=== PATIENT | male | born 1940 | race Caucasian/White ===

== ENCOUNTER 2018-10-16 01:58 | Inpatient (IN) | payer MEDICARE, OTHER ==
[~2018-10-16] VITALS: Ht 177.8 cm; Wt 95.7 kg
[2018-10-16] MEDS ORDERED: ACETAMINOPHEN 650 MG/SUPP.RECT RC ONE ×2 (02:05→02:30)
[2018-10-16] MEDS ORDERED: LIDOCAINE 2% JEL UROJET 10 ML MM ONE (02:09)
--- NOTE | 2018-10-16 02:10 | NUR ---
TO BED 2 BIB PARAMEDICS C/O FEVER SINCE EARLIER TONIGHT. PT AAOX1 NO ACUTE DISTRESS NOTED, RESP EVEN AND UNLABORED. PT HOT TO TOUCH, DIAPHORETIC. PLACE PT ON CARDIAC MONITORING, CONTINUOUS POX, O2@2L/NC. ER MD AT BEDSIDE TO EVAL PT WITH ORDERS RECEIVED. PT AT BEDSIDE. STARTED SL 18G TO L WRIST, BLOOD DRAWN AND SENT TO LAB.
[2018-10-16] MEDS ORDERED: ONDANSETRON HCL/PF 4 MG/2 ML VIAL ONE (02:19)
[2018-10-16 02:25] LABS: BASOPHILS % (AUTO) 0.2 % (0.0-2.0); EOSINOPHILS % (AUTO) 0.2 % (0.0-6.0); HEMATOCRIT 55 % (39-51); HEMOGLOBIN 18.8 g/dL (13.5-17.5); LYMPHOCYTES # (AUTO) 0.5 /CMM (0.8-4.8); LYMPHOCYTES % (AUTO) 6.8 % (20.0-44.0); MEAN CORPUSCULAR HGB CONC 34 g/dl (31.0-36.0); MEAN CORPUSCULAR VOLUME 100 fL (80-96); MONOCYTES # (AUTO) 0.4 /CMM (0.1-1.30); MONOCYTES % (AUTO) 4.8 % (2.0-12.0); NEUTROPHILS # (AUTO) 6.7 /CMM (1.8-8.9); PLATELET COUNT (AUTO) 105 /CMM (150-450); RED BLOOD CELL COUNT(AUTO) 5.49 MIL/uL (4.5-6.0); WHITE BLOOD COUNT (AUTO) 7.6 K/uL (4.3-11.0)
[2018-10-16] MEDS ORDERED: ONDANSETRON HCL/PF 4 MG/2 ML VIAL IVP ONE (02:30)
[2018-10-16] MEDS ORDERED: IV NS 0.9% 1,000 ML BAG IV ONE ×2 (02:30→03:00)
[2018-10-16 02:31] LABS: CALCIUM, SERUM 9.3 mg/dL (8.5-10.1); CARBON DIOXIDE 23 mmol/L (21-32); CHLORIDE 104 mmol/L (98-107); GLUCOSE 142 mg/dL (74-106); POTASSIUM 4.2 mmol/L (3.5-5.1); SODIUM SERUM 139 mmol/L (136-145); UREA NITROGEN, BLOOD 29 mg/dL (7-18)
[2018-10-16 02:33] LABS: APPEARANCE,URINE Cloudy (CLEAR); BILIRUBIN,URINE Negative (NEGATIVE); BLOOD, URINE Moderate Ery/uL (NEGATIVE); COLOR,URINE Yellow (YELLOW); KETONES,URINE Negative (NEGATIVE); LEUKOCYTE ESTERASE ,URINE Small (NEGATIVE); NITRITE, URINE Negative (NEGATIVE); PROTEIN,URINE 100 mg/dl (NEGATIVE); UGLUCOSE Negative (NEGATIVE); UROBILINOGEN,URINE 0.2 EU/dL (0.2)
--- NOTE | 2018-10-16 02:42 | NUR ---
PT BROUGHT BY RADIOLOGY TO CT
[2018-10-16 02:45] LABS: ALANINE AMINOTRANSFERASE 42 U/L (12-78); ALBUMIN 3.6 g/dL (3.4-5.0); ALKALINE PHOSPHATASE 108 U/L (46-116); ASPARTATE AMINOTRANSFERASE 35 U/L (15-37); B-TYPE NATRIURETIC PEPTIDE 823 PG/ML (0-125); BILIRUBIN,DIRECT 0.2 mg/dL (0.0-0.2); BILIRUBIN,TOTAL 0.8 mg/dL (0.2-1.0); TOTAL PROTEIN, SERUM 6.9 g/dL (6.4-8.2)
[2018-10-16 02:50] LABS: BACTERIA,URINE None seen /HPF (None Seen); SQUAMOUS EPITHELIAL CELL,UR Few /HPF (None Seen)
--- NOTE | 2018-10-16 02:57 | NUR ---
PT BACK FROM RADIOLOGY. PENDING CT RESULTS.
[2018-10-16] MEDS ORDERED: IV NS 0.9% 250 ML IV ONE (04:35)
[2018-10-16] MEDS ORDERED: IOHEXOL-350 100 ML VIAL IV ONE (04:35)
[2018-10-16] MEDS ORDERED: CT SWABBABLE VALVE TRANS SET 1 EA INFUS.SET MC ONE (04:35)
--- NOTE | 2018-10-16 04:43 | NUR ---
PT TRANSPORTED TO RADIOLOGY FOR CT HEAD WITH CONTRAST.
--- NOTE | 2018-10-16 04:53 | NUR ---
PT BACK FROM RADIOLOGY. PENDING CT RESUTL.
[2018-10-16] MEDS ORDERED: CEFTRIAXONE 1GM BAG (ER ONLY) 1 GM/50 ML PIGGYBACK IV ONE (05:30)
[2018-10-16] MEDS ORDERED: AZITHROMYCIN 500 MG in IV D5W 250 ML IV ONE (05:30)
[2018-10-16] MEDS ORDERED: CEFTRIAXONE 1GM BAG (ER ONLY) 50 ML IV ONE (05:41)
[2018-10-16] MEDS ORDERED: AZITHROMYCIN 500 MG VIAL ONE (05:42)
--- NOTE | 2018-10-16 06:08 | NUR ---
REPORT CALLED TO [facility]. PENDING HOSPITAL ADMISSION.
[2018-10-16 06:45] VITALS: BP 103/59
--- NOTE | 2018-10-16 06:48 | NUR ---
RECEIVE PT VIA DENNY FROM E.R AT 0648 PATIENT STABLE A/O X 4, ADMIT TO TELE VS STABLE. KEPT CLEAN AND DRY AND COMFORTABLE. SAFETY MEASURES IN PLACE. ENDORSE NEXT ADMITTING RN
[2018-10-16] MEDS ORDERED: ONDANSETRON HCL/PF 4 MG/2 ML VIAL IVP PRN (07:00)
[2018-10-16] MEDS ORDERED: IV D5/ 0.9% NACL 1,000 ML IV PRN (07:00)
[2018-10-16] MEDS ORDERED: ALBUTEROL FS 2.5 MG/3 ML VIAL.NEB NEB PRN (07:00)
[2018-10-16] MEDS ORDERED: ACETAMINOPHEN 650 MG/SUPP.RECT RC PRN (07:00)
[2018-10-16] MEDS ORDERED: Z GUARD REMEDY 2 OZ OINT TP PRN (07:00)
[2018-10-16] MEDS ORDERED: MORPHINE SULFATE INJ 2 MG/ML DISP.SYRIN IV PRN (07:00)
--- NOTE | 2018-10-16 07:13 | NUR ---
VS BP BP 101/54 P 77 R 18 T 98.2 02 SAT 93% R.A
--- NOTE | 2018-10-16 07:30 | NUR ---
tele cereal maker: admission admitted this 78 years old male pt from e.. with dx: pneumonia and sepsis. and friend at bedside. answering all questions due to pt has hx: dementia. pt is awake, a/ox3-4. oriented to room and surroundings. noted with 2 h/l (right and left wrist). tele sr=[id number]. no c/o pain or any discomfort. afebrile. in no apparent distress noted. will continue to monitor.
[2018-10-16] MEDS ORDERED: METO25TA3 PO (07:49)
[2018-10-16] MEDS ORDERED: AMLO5TAB9 PO (07:49)
[2018-10-16] MEDS ORDERED: VITA1TAB56 PO (07:49)
[2018-10-16] MEDS ORDERED: LORA1TAB PO (07:49)
[2018-10-16] MEDS ORDERED: APIX5TAB PO (07:49)
[2018-10-16] MEDS ORDERED: MODA100T14 PO (07:49)
[2018-10-16] MEDS ORDERED: IMIP10TA5 PO (07:49)
[2018-10-16] MEDS ORDERED: MEMA10TA PO (07:49)
[2018-10-16] MEDS ORDERED: ATOR10TA PO (07:49)
[2018-10-16] MEDS ORDERED: LEVO50TA PO (07:49)
[2018-10-16] MEDS ORDERED: ZOLP12.52 PO (07:49)
[2018-10-16] MEDS ORDERED: BUPR-51 PO (07:49)
[2018-10-16] MEDS ORDERED: FERR-56 PO (07:49)
[2018-10-16] MEDS ORDERED: LISI10TA5 PO (07:49)
[2018-10-16 08:00] VITALS: BP 103/59
[2018-10-16 08:20] LABS: BASOPHILS % (AUTO) 0.1 % (0.0-2.0); HEMATOCRIT 49 % (39-51); HEMOGLOBIN 16.4 g/dL (13.5-17.5); LYMPHOCYTES # (AUTO) 0.5 /CMM (0.8-4.8); LYMPHOCYTES % (AUTO) 3.7 % (20.0-44.0); MEAN CORPUSCULAR HGB CONC 33 g/dl (31.0-36.0); MEAN CORPUSCULAR VOLUME 102 fL (80-96); MONOCYTES # (AUTO) 1.8 /CMM (0.1-1.30); MONOCYTES % (AUTO) 14.4 % (2.0-12.0); NEUTROPHILS # (AUTO) 10.4 /CMM (1.8-8.9); NEUTROPHILS % (AUTO) 81.8 % (43.0-81.0); PLATELET COUNT (AUTO) 98 /CMM (150-450); RED BLOOD CELL COUNT(AUTO) 4.84 MIL/uL (4.5-6.0); WHITE BLOOD COUNT (AUTO) 12.7 K/uL (4.3-11.0)
--- NOTE | 2018-10-16 08:30 | NUR ---
tele formal wear rental clerk: md visit seen and examined by mildred baker (acnp) at this time. informed md re: advance directive (no heroic measures per ); to bring copy today. given phone number to elder assistant to call pt's primary care at [facility]. pt appears to be forgetful. reality orientation provided prn. instructed to call for assistance. tele sr.=[id number]'s. call light within reach. will monitor.
[2018-10-16] MEDS: FAMOTIDINE/PF INJ 20 MG/2 ML VIAL IV SCH ×2 (08:37→21:25)
[2018-10-16 08:46] LABS: CALCIUM, SERUM 8.7 mg/dL (8.5-10.1); CARBON DIOXIDE 24 mmol/L (21-32); CHLORIDE 105 mmol/L (98-107); GLUCOSE 194 mg/dL (74-106); POTASSIUM 4.1 mmol/L (3.5-5.1); SODIUM SERUM 138 mmol/L (136-145); UREA NITROGEN, BLOOD 27 mg/dL (7-18)
[2018-10-16 08:52] LABS: ALANINE AMINOTRANSFERASE 34 U/L (12-78); ALBUMIN 2.9 g/dL (3.4-5.0); ALKALINE PHOSPHATASE 80 U/L (46-116); ASPARTATE AMINOTRANSFERASE 33 U/L (15-37); BILIRUBIN,TOTAL 0.5 mg/dL (0.2-1.0); MAGNESIUM 1.7 mg/dL (1.8-2.4); PHOSPHORUS 2.9 mg/dL (2.5-4.9); TOTAL PROTEIN, SERUM 5.5 g/dL (6.4-8.2)
[2018-10-16 08:59] LABS: CHOLESTEROL 96 mg/dL (<200); HDL CHOLESTEROL 42 mg/dL (40-60); LDL 48 mg/dL (0-99); THYROID STIMULATING HORMONE 0.451 uIU/mL (0.358-3.74); TRIGLYCERIDES 61 mg/dL (30-150)
[2018-10-16] MEDS ORDERED: FERROUS SULFATE (325 MG) 325 MG/TAB TABLET PO SCH (09:00)
[2018-10-16] MEDS ORDERED: IMIPRAMINE 25 MG TABLET PO SCH (09:00)
[2018-10-16] MEDS ORDERED: APIXABAN 5 MG TABLET PO ONE (09:30)
[2018-10-16] MEDS ORDERED: IMIPRAMINE 10 MG TABLET PO SCH (09:30)
--- NOTE | 2018-10-16 09:30 | NUR ---
m/s front end driver: cardio consult seen and examined by dr. corral with new orders. orders acknowledged.
[2018-10-16] MEDS: FUROSEMIDE 40 MG/4 ML VIAL IV SCH ×2 (09:49→13:58)
[2018-10-16] MEDS: LISINOPRIL (10MG) 10 MG TABLET PO SCH (10:00)
[2018-10-16] MEDS: AMLODIPINE BESYLATE 5 MG TABLET PO SCH (10:00)
[2018-10-16] MEDS: METOPROLOL SUCCINATE 25 MG TAB.SR.24H PO SCH (10:00)
[2018-10-16] MEDS: VITAMIN B COMP W-C 1 TAB TABLET PO SCH (11:15)
[2018-10-16] MEDS: BUPROPION XL 150 MG TAB.ER.24 PO SCH (11:15)
[2018-10-16] MEDS: MEMANTINE HCL 5 MG TABLET PO SCH ×2 (11:15→17:32)
[2018-10-16] MEDS: ATORVASTATIN 10 MG TABLET PO SCH (11:15)
[2018-10-16] MEDS: MODAFINIL 100 MG TABLET PO SCH ×2 (11:17→18:21)
[2018-10-16] MEDS: LEVOTHYROXINE SODIUM 50 MCG TABLET PO SCH (11:17)
[2018-10-16] MEDS ORDERED: Magnesium 1GM/D5W 100ML PREMIX 100 ML IV SCH (12:00)
--- NOTE | 2018-10-16 12:00 | NUR ---
m/s civil preparedness training officer: notes pt resting comfortable in bed. lunch served, but pt doesn't want to eat at this time. instructed to call for assistance. will continue to monitor.
[2018-10-16 12:53] LABS: BAND % (MANUAL) 3 % (0.0-5.0); LYMPHOCYTES % (MANUAL) 2 % (16-48); MONOCYTES % (MANUAL) 12 % (0-11.0); NEUTROPHILS % (MANUAL) 83 (42-76)
--- NOTE | 2018-10-16 13:30 | NUR ---
m/s compensation specialist: notes pt refused breakfast and lunch when offered, stated, "i will eat in the middle of afternoon." instructed to call for assistance. will continue to monitor.
--- NOTE | 2018-10-16 15:30 | NUR ---
m/s uniform cap operator: notes here and brought some clothes and a couple of books. updated belongings lists. pt feeling much better. no distress noted. will continue to monitor.
[2018-10-16 16:00] VITALS: BP 106/55
--- NOTE | 2018-10-16 16:30 | NUR ---
Patient resides locally with spouse in a single level dwelling. He is ambulatory and independent with adl's. Denies having DME or homehealth. Pcp is Dr. Selvin Garcia. Current dc plan is to return home. Addendum: 10/16/18 at 1631 by PADMINI CROWE RN Amended: Links added.
--- NOTE | 2018-10-16 17:30 | NUR ---
m/s machine design engineer: notes dinner served. hob elevated. remains at bedside. will continue to monitor.
[2018-10-16] MEDS: APIXABAN 5 MG TABLET PO SCH (17:32)
--- NOTE | 2018-10-16 18:10 | NUR ---
m/s clinical material handler: notes left. pt resting comfortable in bed. remains afebrile. needs attended. instructed to call for assistance. will continue to monitor.
--- NOTE | 2018-10-16 19:15 | NUR ---
m/s business systems developer: notes report given to ivonne (vicki) for continuity of care.
--- NOTE | 2018-10-16 19:30 | NUR ---
MSRN FULLY AWAKE, SITTING ON THE SIDE OF HIS BED. NO DISCOMFORTS MADE. SAFETY PRECAUTIONS EMPHASIZED, WELL UNDERSTOOD. REMINDED TO CALL STAFF FOR ANY ASSISTANCE OR DISCOMFORTS, CALL LIGHT WITHIN REACH. NO FURTHER NEEDS MADE. CLOSELY WATCHED.
[2018-10-16 20:00] VITALS: BP 108/58
--- NOTE | 2018-10-16 21:45 | NUR ---
msrn due meds administered. no further needs made
[2018-10-16] MEDS: ZOLPIDEM TARTRATE 5 MG TABLET PO PRN (23:25)
--- NOTE | 2018-10-16 23:30 | NUR ---
CHAVA RECEIVED CALL FROM [place], PATIENT BLOOD CULTURE HAS GRAM NEGATIVE RODS. PER [employer] WILL FAXED FINAL REPORT OF BLOOD CULTURE IN AM.
--- NOTE | 2018-10-17 00:41 | NUR ---
MSRN AMBULATING AROUND ROOM, MAKING SELF BUSY FIXING HIS PERSONAL BELONGINGS, READING BOOKS. REQUESTED AMBIEN EARLIER STILL AWAKE OF THIS TIME. SAFETY PRECAUTIONS EMPHASIZED, WELL UNDERSTOOD.
--- NOTE | 2018-10-17 05:30 | NUR ---
MSRN ANTIBIOTICS INFUSING WELL, EASILY AROUSABLE. REORIENTED AT TIMES, PLEASANTLY CONFUSED.
[2018-10-17] MEDS: CEFTRIAXONE 1 G in IV D5W 50 ML IV SCH (06:04)
[2018-10-17 06:37] LABS: BASOPHILS % (AUTO) 0.4 % (0.0-2.0); EOSINOPHILS % (AUTO) 0.9 % (0.0-6.0); HEMATOCRIT 50 % (39-51); HEMOGLOBIN 17.2 g/dL (13.5-17.5); LYMPHOCYTES # (AUTO) 0.5 /CMM (0.8-4.8); LYMPHOCYTES % (AUTO) 6.2 % (20.0-44.0); MEAN CORPUSCULAR HGB CONC 34 g/dl (31.0-36.0); MEAN CORPUSCULAR VOLUME 101 fL (80-96); MONOCYTES # (AUTO) 1.7 /CMM (0.1-1.30); MONOCYTES % (AUTO) 19.7 % (2.0-12.0); NEUTROPHILS # (AUTO) 6.2 /CMM (1.8-8.9); NEUTROPHILS % (AUTO) 72.8 % (43.0-81.0); PLATELET COUNT (AUTO) 100 /CMM (150-450); RED BLOOD CELL COUNT(AUTO) 4.99 MIL/uL (4.5-6.0); WHITE BLOOD COUNT (AUTO) 8.5 K/uL (4.3-11.0)
[2018-10-17] MEDS: AZITHROMYCIN 500 MG in IV D5W 250 ML IV SCH (06:38)
[2018-10-17 07:01] LABS: ALANINE AMINOTRANSFERASE 42 U/L (12-78); ALKALINE PHOSPHATASE 85 U/L (46-116); ASPARTATE AMINOTRANSFERASE 31 U/L (15-37); BILIRUBIN,TOTAL 0.5 mg/dL (0.2-1.0); CALCIUM, SERUM 9.1 mg/dL (8.5-10.1); CARBON DIOXIDE 26 mmol/L (21-32); CHLORIDE 105 mmol/L (98-107); CREATININE 2.2 mg/dL (0.6-1.3); GLUCOSE 115 mg/dL (74-106); PHOSPHORUS 2.9 mg/dL (2.5-4.9); POTASSIUM 4.1 mmol/L (3.5-5.1); SODIUM SERUM 140 mmol/L (136-145); TOTAL PROTEIN, SERUM 6.1 g/dL (6.4-8.2); UREA NITROGEN, BLOOD 33 mg/dL (7-18)
--- NOTE | 2018-10-17 07:06 | NUR ---
MSRN REMAINS UNCHANGE, REMAINS AFEBRILE. NO MICRO REPORTS RECEIVE FROM [facility]. WILL ENDORSE TO INCOMING RN
[2018-10-17 08:00] VITALS: BP 106/48
[2018-10-17 08:46] LABS: LYMPHOCYTES % (MANUAL) 4 % (16-48); MONOCYTES % (MANUAL) 17 % (0-11.0); NEUTROPHILS % (MANUAL) 79 (42-76)
[2018-10-17] MEDS: LISINOPRIL (10MG) 10 MG TABLET PO SCH (09:00)
[2018-10-17] MEDS: AMLODIPINE BESYLATE 5 MG TABLET PO SCH (09:00)
[2018-10-17] MEDS: METOPROLOL SUCCINATE 25 MG TAB.SR.24H PO SCH (09:00)
[2018-10-17] MEDS: BUPROPION XL 150 MG TAB.ER.24 PO SCH (09:36)
[2018-10-17] MEDS: ATORVASTATIN 10 MG TABLET PO SCH (09:36)
[2018-10-17] MEDS: LEVOTHYROXINE SODIUM 50 MCG TABLET PO SCH (09:36)
[2018-10-17] MEDS: MEMANTINE HCL 5 MG TABLET PO SCH ×2 (09:37→19:28)
[2018-10-17] MEDS: IMIPRAMINE 25 MG TABLET PO SCH ×2 (09:38→19:27)
[2018-10-17] MEDS: VITAMIN B COMP W-C 1 TAB TABLET PO SCH (09:39)
[2018-10-17] MEDS: APIXABAN 5 MG TABLET PO SCH ×2 (09:47→19:29)
[2018-10-17] MEDS: PANTOPRAZOLE 40 MG TABLET.DR PO SCH (09:56)
[2018-10-17] MEDS: MODAFINIL 100 MG TABLET PO SCH ×2 (10:04→19:28)
--- NOTE | 2018-10-17 10:30 | NUR ---
report to dr. pierce pt. with gram negative rods in blood and urine.
--- NOTE | 2018-10-17 11:00 | NUR ---
in to visit.
[2018-10-17] MEDS ORDERED: hydrALAZINE HCL 25 MG TABLET PO PRN (11:30)
[2018-10-17 12:00] VITALS: BP 124/64
[2018-10-17 16:00] VITALS: BP 115/61
--- NOTE | 2018-10-17 18:00 | NUR ---
pt. sleeping all day, back in to visit.
--- NOTE | 2018-10-17 19:10 | NUR ---
MS RN NOTES RECEIVED PT IN BED AWAKE AND ABLE TO MAKE NEEDS KNOWN WITH FAMILY AT BEDSIDE. PT A/O X2-3 WITH PERIODS OF CONFUSION. RESPIRATIONS EVEN AND UNLABORED WITH NO S/S OF ACUTE DISTRESS OR SOB NOTED. NO COMPLAINTS OF PAIN AT THIS TIME. SAFETY MEASURES IN PLACE WITH BED IN LOWEST LOCKED POSITION WITH SIDE RAILS UP X2. CALL LIGHT WITHIN REACH. WILL CONTINUE TO MONITOR.
[2018-10-17 20:00] VITALS: BP 121/74
[2018-10-17] MEDS: ZOLPIDEM TARTRATE 5 MG TABLET PO PRN (21:50)
[2018-10-18] MEDS: CEFTRIAXONE 1 G in IV D5W 50 ML IV SCH (04:56)
[2018-10-18] MEDS: AZITHROMYCIN 500 MG in IV D5W 250 ML IV SCH (05:57)
--- NOTE | 2018-10-18 06:44 | NUR ---
MS RN NOTES PT IN BED SLEEPING BUT EASILY AWOKEN VERBALLY OR BY TOUCH. PT A/O X2-3 WITH PERIODS OF CONFUSION AND ABLE TO MAKE NEEDS KNOWN. RESPIRATIONS EVEN AND UNLABORED WITH NO S/S OF ACUTE DISTRESS OR SOB NOTED THROUGHOUT SHIFT. NO COMPLAINTS OF PAIN AT THIS TIME. SAFETY MEASURES IN PLACE WITH BED IN LOWEST LOCKED POSITION WITH SIDE RAILS UP X2. CALL LIGHT WITHIN REACH. WILL ENDORSE TO ONCOMING NURSE FOR VERONICA.
[2018-10-18 07:27] LABS: BASOPHILS % (AUTO) 0.2 % (0.0-2.0); EOSINOPHILS % (AUTO) 0.2 % (0.0-6.0); HEMATOCRIT 48 % (39-51); HEMOGLOBIN 16.4 g/dL (13.5-17.5); LYMPHOCYTES # (AUTO) 0.7 /CMM (0.8-4.8); LYMPHOCYTES % (AUTO) 9.4 % (20.0-44.0); MEAN CORPUSCULAR HGB CONC 34 g/dl (31.0-36.0); MEAN CORPUSCULAR VOLUME 101 fL (80-96); MONOCYTES # (AUTO) 1.6 /CMM (0.1-1.30); MONOCYTES % (AUTO) 21.7 % (2.0-12.0); NEUTROPHILS # (AUTO) 4.9 /CMM (1.8-8.9); NEUTROPHILS % (AUTO) 68.5 % (43.0-81.0); PLATELET COUNT (AUTO) 106 /CMM (150-450); RED BLOOD CELL COUNT(AUTO) 4.77 MIL/uL (4.5-6.0); WHITE BLOOD COUNT (AUTO) 7.2 K/uL (4.3-11.0)
--- NOTE | 2018-10-18 07:40 | NUR ---
MS RN OPENING NOTES RECEIVED PT LAYING IN BED WITH HOB SLIGHTLY ELEVATED, RESTING COMFORTABLY. PT IS EASILY AROUSABLE, A/O X2-3. RESPIRATIONS ARE EVEN AND UNLABORED, NOT IN ANY ACUTE DISTRESS NOTED. PT DENIES ANY PAIN AT THIS TIME, NO C/O SOB, N/V. BILATERAL WRISTS NOTED WITH IV, INTACT, NO INFILTRATION NOTED. DRESSING KEPT CLEAN AND DRY. SAFETY MEASURES ARE IN PLACE. INSTRUCTED PT TO USE CALL LIGHT WHEN ASSISTANCE IS NEEDED, CALL LIGHT IS LEFT WITHIN REACH. WILL MONITOR THROUGHOUT SHIFT FOR CONTINUITY OF CARE.
[2018-10-18 07:43] LABS: CARBON DIOXIDE 26 mmol/L (21-32); CHLORIDE 105 mmol/L (98-107); GLUCOSE 157 mg/dL (74-106); MAGNESIUM 1.8 mg/dL (1.8-2.4); PHOSPHORUS 2.9 mg/dL (2.5-4.9); POTASSIUM 4.7 mmol/L (3.5-5.1); SODIUM SERUM 139 mmol/L (136-145); UREA NITROGEN, BLOOD 26 mg/dL (7-18)
[2018-10-18 08:00] VITALS: BP_SYST 101; BP_DIAS 53; BP_DIAS 55
[2018-10-18 08:17] LABS: BAND % (MANUAL) 23 % (0.0-5.0); LYMPHOCYTES % (MANUAL) 11 % (16-48); MONOCYTES % (MANUAL) 19 % (0-11.0); NEUTROPHILS % (MANUAL) 47 (42-76)
[2018-10-18] MEDS: METOPROLOL SUCCINATE 25 MG TAB.SR.24H PO SCH (08:17)
[2018-10-18] MEDS: VITAMIN B COMP W-C 1 TAB TABLET PO SCH (08:17)
[2018-10-18] MEDS: ATORVASTATIN 10 MG TABLET PO SCH (08:17)
[2018-10-18] MEDS: BUPROPION XL 150 MG TAB.ER.24 PO SCH (08:17)
[2018-10-18] MEDS: AMLODIPINE BESYLATE 5 MG TABLET PO SCH (08:17)
[2018-10-18] MEDS: MEMANTINE HCL 5 MG TABLET PO SCH ×2 (08:17→17:24)
[2018-10-18] MEDS: LEVOTHYROXINE SODIUM 50 MCG TABLET PO SCH (08:17)
[2018-10-18] MEDS: MODAFINIL 100 MG TABLET PO SCH ×2 (08:17→17:24)
[2018-10-18] MEDS: PANTOPRAZOLE 40 MG TABLET.DR PO SCH (08:17)
[2018-10-18] MEDS: APIXABAN 5 MG TABLET PO SCH ×2 (08:19→17:24)
[2018-10-18] MEDS: IMIPRAMINE 25 MG TABLET PO SCH ×2 (08:20→17:24)
--- NOTE | 2018-10-18 11:40 | NUR ---
MS RN NOTES-- CALLED DR. KWON TO NOTIFY RE: URINE CX RESULTS, RESISTIVE TO ROCEPHINE. WAITING A CALL BACK.
--- NOTE | 2018-10-18 12:34 | NUR ---
MS RN NOTES-- PT ABLE TO MAKE NEEDS KNOWN. NEEDS MET AND RENDERED. PT DOES NOT APPEAR TO BE IN ANY ACUTE DISTRESS. WILL CONTINUE TO MONITOR.
[2018-10-18 16:00] VITALS: BP 126/70
[2018-10-18] MEDS ORDERED: MEROPENEM 500 MG in IV NS 0.9% 50 ML IV SCH (17:30)
--- NOTE | 2018-10-18 17:30 | NUR ---
MS RN NOTES-- NEW ORDERS FOR MEREM, CARRIED OUT BY SWATI REILLY.
--- NOTE | 2018-10-18 18:36 | NUR ---
MS RN CLOSING NOTES ALL DUE MEDS GIVEN, NEEDS MET AND RENDERED. PT REMAINS A/O 3-4, HOWEVER W/ PERIODS OF FORGETFULNESS. RESPIRATIONS ARE EVEN AND UNLABORED, NOT IN ANY ACUTE DISTRESS NOTED. PT DENIES ANY PAIN AT THIS TIME, NO C/O SOB, N/V. IV SITE TO LEFT WRIST INTACT, NO INFILTRATION NOTED. DRESSING KEPT CLEAN AND DRY. REMINDED PT TO USE CALL LIGHT WHEN ASSISTANCE IS NEEDED, CALL LIGHT IS LEFT WITHIN REACH. WILL ENDORSE TO NEXT SHIFT FOR CONTINUITY OF CARE.
[2018-10-18] MEDS: MEROPENEM 1 G in IV NS 0.9% 100 ML IV SCH (19:17)
--- NOTE | 2018-10-18 19:40 | NUR ---
MS/RN OPENING NOTES PT RECEIVED AWAKE, SITTING AT THE EDGE OF THE BED WITH AT BEDSIDE. A/OX3. ON ROOM AIR, BREATHING EVEN AND UNLABORED. DENIES SOB AND PAIN AT THIS TIME. IN NO ACUTE DISTRESS. IV TO LEFT WRIST CURRENTLY INFUSING ABX. NO NEEDS EXPRESSED AT THIS TIME. BED IN LOW/LOCKED POSITION WITH CALL LIGHT IN REACH. BILAT. UPPER SIDE RAILS IN PLACE. ONLY REQUEST FOR AMBIEN AT 2200. WILL CONTINUE TO MONITOR
[2018-10-18 20:00] VITALS: BP 122/71
[2018-10-18] MEDS: ZOLPIDEM TARTRATE 5 MG TABLET PO PRN (22:10)
--- NOTE | 2018-10-19 04:00 | NUR ---
MS/RN NOTES PT AWAKE, SITTING UP IN BED READING A BOOK. NO NEEDS EXPRESSED AT THIS TIME.
[2018-10-19] MEDS: MEROPENEM 1 G in IV NS 0.9% 100 ML IV SCH ×2 (06:18→18:42)
--- NOTE | 2018-10-19 07:15 | NUR ---
MS/RN CLOSING NOTES PT AWAKE, SITTING IN THE CHAIR. A/O3. ON ROOM AIR, BREATHING EVEN AND UNLABORED. IN NO ACUTE DISTRESS. DENIES SOB AND PAIN AT THIS TIME. IV TO LEFT WRIST PATENT AND INTACT WITH IV ABX ONGOING. NO SIGNIFICANT CHANGES OVERNIGHT. ALL NEEDS MET AND ANTICIPATED. BED REMAINS IN LOW/LCOKED POSITION WITH CALL LIGHT IN REACH. SEMI FOWLERS. BILAT. UPPER SIDE RAILS IN PLACE. WILL ENDORSE TO DAY SHIFT RN VERONICA.
--- NOTE | 2018-10-19 07:16 | NUR ---
RN OPENING NOTES RECEIVED PATIENT SITTING ON A CHAIR. A/OX4, ABLE TO MAKE NEEDS KNOWN. NOT IN ANY FORM OF DISTRESS, NO SOB, DENIED PAIN OR DISCOMFORT AT THIS TIME. IV ACCESS INTACT AND PATENT. KEPT PATIENT SAFE AND COMFORTABLE. BED IN LOW/LOCKED POSITION. BILATERAL SIDERAILS UP,CALL LIGHTS IN REACH. WILL CONTINUE TO MONITOR ACCORDINGLY
[2018-10-19] MEDS: VITAMIN B COMP W-C 1 TAB TABLET PO SCH (08:14)
[2018-10-19] MEDS: MEMANTINE HCL 5 MG TABLET PO SCH ×2 (08:15→17:03)
[2018-10-19] MEDS: LEVOTHYROXINE SODIUM 50 MCG TABLET PO SCH (08:17)
[2018-10-19] MEDS: ATORVASTATIN 10 MG TABLET PO SCH (08:17)
[2018-10-19] MEDS: AMLODIPINE BESYLATE 5 MG TABLET PO SCH (08:18)
[2018-10-19] MEDS: BUPROPION XL 150 MG TAB.ER.24 PO SCH (08:21)
[2018-10-19] MEDS: PANTOPRAZOLE 40 MG TABLET.DR PO SCH (08:21)
[2018-10-19] MEDS: METOPROLOL SUCCINATE 25 MG TAB.SR.24H PO SCH (08:21)
[2018-10-19] MEDS: MODAFINIL 100 MG TABLET PO SCH ×2 (08:21→17:03)
[2018-10-19] MEDS: APIXABAN 5 MG TABLET PO SCH ×2 (08:26→17:01)
[2018-10-19] MEDS: IMIPRAMINE 25 MG TABLET PO SCH ×2 (08:26→17:02)
[2018-10-19 08:59] VITALS: BP 141/88
[2018-10-19] MEDS ORDERED: REGADENOSON 0.4 MG/5 ML DISP.SYRIN IVP ONE (09:00)
[2018-10-19 15:15] VITALS: BP_SYST 112; BP_SYST 152; BP_DIAS 43; BP_DIAS 63
--- NOTE | 2018-10-19 19:24 | NUR ---
MS/RN OPENING NOTES PT RECEIVED AWAKE, HIGH FOWLERS IN BED WITH AT BEDSIDE. A/OX3. ON ROOM AIR, BREATHING EVEN AND UNLABORED. NO C/O SOB OR PAIN AT THIS TIME. IN NO ACUTE DISTRESS. JASPER MIDLINE PATENT AND INTACT CURRENTLY INFUSING IV MERREM AT THIS TIME. NO NEEDS EXPRESSED AT THIS TIME. ISOLATION PRECAUTIONS IMPLEMENTED. BED IN LOW/LOCKED POSITION WITH CALL LIGHT IN REACH. BILAT. UPPER SIDE RAILS IN PLACE. WILL CONTINUE TO MONITOR
[2018-10-19 20:00] VITALS: BP 133/69
[2018-10-20] MEDS: ZOLPIDEM TARTRATE 5 MG TABLET PO PRN (00:11)
--- NOTE | 2018-10-20 00:15 | NUR ---
MS/RN NOTES PT REQUESTING SLEEPING PILL. ADMINISTERED AMBIEN 5MG PO ORDERED. NO OTHER NEEDS EXPRESSED AT THIS TIME
--- NOTE | 2018-10-20 03:54 | NUR ---
MS/RN NOTES PT ASLEEP, BREATHING EVEN AND UNLABORED. IN NO ACUTE DISTRESS. WILL CONTINUE TO MONITOR
[2018-10-20] MEDS: MEROPENEM 1 G in IV NS 0.9% 100 ML IV SCH (05:38)
--- NOTE | 2018-10-20 06:33 | NUR ---
MS/RN CLOSING NOTES PT ASLEEP, RESPONSIVE TO NAME. A/OX3. REMAINS ON ROOM AIR, BREATHING EVEN AND UNLABORED. DENIES SOB AND PAIN AT THIS TIME. JASPER MIDLINE PATENT AND INTACT CURRENTLY INFUSING IV MERREM. NO SIGNIFICANT CHANGES OVERNIGHT. ALL NEEDS MET AND ANTICIPATED. ISOLATION PRECAUTIONS IMPLEMENTED THROUGHOUT SHIFT. BED IN LOW/LOCKED POSITION WITH CALL LIGHT IN REACH. BILAT. UPPER SIDE RAILS IN PLACE. WILL ENDORSE TO DAY SHIFT RN VERONICA.
--- NOTE | 2018-10-20 07:30 | NUR ---
MS RN NOTES RECEIVED PATIENT IN BED ASLEEP, AROUSABLE. ALERT AND ORIENTED X3. HOB ELEVATED. NO SOB NOTED. DENIES ANY C/O PAIN NOR DISCOMFORT AT THIS TIME. JASPER MIDLINE INTACT AND PATENT. BED IN LOWEST POSITION. CALL LIGHT WITHIN REACH.
[2018-10-20 08:00] VITALS: BP 137/71
[2018-10-20] MEDS: LEVOTHYROXINE SODIUM 50 MCG TABLET PO SCH (08:26)
[2018-10-20] MEDS: PANTOPRAZOLE 40 MG TABLET.DR PO SCH (08:26)
[2018-10-20] MEDS: METOPROLOL SUCCINATE 25 MG TAB.SR.24H PO SCH (08:35)
[2018-10-20] MEDS: MODAFINIL 100 MG TABLET PO SCH (08:35)
[2018-10-20] MEDS: VITAMIN B COMP W-C 1 TAB TABLET PO SCH (08:35)
[2018-10-20 08:36] VITALS: BP 137/71
[2018-10-20] MEDS: APIXABAN 5 MG TABLET PO SCH (08:36)
[2018-10-20] MEDS: IMIPRAMINE 25 MG TABLET PO SCH (08:36)
[2018-10-20] MEDS: AMLODIPINE BESYLATE 5 MG TABLET PO SCH (08:36)
[2018-10-20] MEDS: BUPROPION XL 150 MG TAB.ER.24 PO SCH (08:36)
[2018-10-20] MEDS: MEMANTINE HCL 5 MG TABLET PO SCH (08:37)
[2018-10-20] MEDS: ATORVASTATIN 10 MG TABLET PO SCH (08:37)
--- NOTE | 2018-10-20 15:37 | NUR ---
MS RN NOTES PATIENT DISCHARGED TO HOME TODAY. LEFT WITH IN PRIVATE VEHICLE. DISCHARGE INSTRUCTIONS, PACKET AND TEACHINGS GIVEN TO PATIENT AND . PATIENT VERBALIZES UNDERSTANDING OF INSTRUCTIONS GIVEN. JASPER MIDLINE INTACT AND PATENT WITHOUT S/S OF COMPLICATIONS. [facility] CON[facility] AND PATIENT'S ALVARO SPOKE TO SHELBI REGARDING SUPPLIES, MEDICATIONS AND HOME HEALTH. ALL BELONGINGS CHECKED WITH PATIENT AND ALL ACCOUTNED FOR. PATIENT LEFT IN STABLE CONDITION.
== END 2018-10-20 15:32 | disposition home health service (06) | DRG 871 ==
LOC: ER 02:01 → TELE 06:09 → MED 08:51
PROVIDERS: ADMIT Nurse Practitioner Acute Care; ATTEND Internal Medicine
PROC: 05H633Z Insertion of Infusion Device into Left Subclavian Vein, Percutaneous Approach (ICD-10-PCS; principal; 2018-10-19)
DX: A41.51 Sepsis due to Escherichia coli [E. coli] (principal); J15.9 Unspecified bacterial pneumonia; N17.0 Acute kidney failure with tubular necrosis; I21.A1 Myocardial infarction type 2; J98.11 Atelectasis; E87.2 Acidosis; K86.1 Other chronic pancreatitis; I50.30 Unspecified diastolic (congestive) heart failure; N39.0 Urinary tract infection, site not specified; I13.0 Hypertensive heart and chronic kidney disease with heart failure and stage 1 through stage 4 chronic kidney disease, or unspecified chronic kidney disease; N18.9 Chronic kidney disease, unspecified; B96.89 Other specified bacterial agents as the cause of diseases classified elsewhere; E78.5 Hyperlipidemia, unspecified; E03.9 Hypothyroidism, unspecified; F32.9 Major depressive disorder, single episode, unspecified; F41.9 Anxiety disorder, unspecified; I48.0 Paroxysmal atrial fibrillation; Z16.12 Extended spectrum beta lactamase (ESBL) resistance; R32 Unspecified urinary incontinence; Z79.01 Long term (current) use of anticoagulants; Z85.46 Personal history of malignant neoplasm of prostate; Z87.442 Personal history of urinary calculi; Z90.79 Acquired absence of other genital organ(s); G47.33 Obstructive sleep apnea (adult) (pediatric); J06.9 Acute upper respiratory infection, unspecified; K80.20 Calculus of gallbladder without cholecystitis without obstruction; K57.30 Diverticulosis of large intestine without perforation or abscess without bleeding; D69.6 Thrombocytopenia, unspecified; N50.1 Vascular disorders of male genital organs; R93.5 Abnormal findings on diagnostic imaging of other abdominal regions, including retroperitoneum
CPT/HCPCS: 36415; 70450-TC; 70496-TC; 71045-TC; 76705-TC; 80048-TC; 80053-TC; 80061-TC; 80076-TC; 81000-TC; 82140-TC; 82962-TC; 83605-TC; 83690-TC; 83735-TC; 83880; 84100-TC; 84443-TC; 84484-TC; 85025-TC; 85730-TC; 86850-TC; 87040-TC; 87081-TC; 87086-TC; 87186-TC; 93307-TC; 97116-TC; 97530-TC; A4216; G0378; J0456; J0696; J1940; J2185; J2405; J2785; J3475; J3490; J7030; J7042; J7050; J7060; Q9967